=== PATIENT | male | born 1940 | race Caucasian/White ===

== ENCOUNTER 2023-11-16 01:44 | Emergency (ER) | payer MEDICARE, MEDICAID ==
[~2023-11-16] VITALS: Ht 177.8 cm; Wt 70.0 kg
[2023-11-16 02:04] VITALS: O2SAT 97
[2023-11-16 03:03] VITALS: BP 143/70; PULSE 71; RESP 16; TEMP 98.4
== END 2023-11-16 06:29 | disposition left against medical advice (07) ==
LOC: ER 01:44
DX: R46.2 Strange and inexplicable behavior (principal); I49.9 Cardiac arrhythmia, unspecified
CPT/HCPCS: 93005; 99283